=== PATIENT | female | born 1975 | race American Indian/Alaskan Native ===

== ENCOUNTER 2022-01-09 11:13 | Emergency (ER) | payer SELFPAY ==
[2022-01-09 11:46] VITALS: BP 223/120
[2022-01-09 14:55] LABS: Hematocrit 33.6 % (30.3-42.9); Hemoglobin 10.3 gm/dl (10.1-14.3); Mean Corpuscular HGB Conc 31 % (30-34); Platelet Count 294 K/mm3 (140-440); Red Blood Count 4.89 M/mm3 (3.65-5.03); Red Cell Distribution Width 18.2 % (13.2-15.2)
[2022-01-09 15:04] LABS: Mean Corpuscular Volume 69 fl (79-97)
[2022-01-09 15:10] LABS: Alanine Aminotransferase 12 units/L (7-56); Albumin 4.3 g/dL (3.9-5); BUN/Creatinine Ratio 10; Blood Urea Nitrogen 8 mg/dL (7-17); Calcium 9.3 mg/dL (8.4-10.2); Hemolysis Index 3
--- NOTE | 2022-01-09 16:16 | XRay Report ---
CHEST 2 VIEWS INDICATION / CLINICAL INFORMATION: Cough for 2 days, increasing last night. COMPARISON: None available. FINDINGS: SUPPORT DEVICES: None. HEART / MEDIASTINUM: The heart size and pulmonary vasculature are normal. LUNGS / PLEURA: No significant pulmonary or pleural abnormality. No pneumothorax. ADDITIONAL FINDINGS: No significant additional findings. IMPRESSION: No acute findings. Signer Name: Jacinto Pepper MD Signed: 01/09/2022 4:12 PM Workstation Name: [id number]
== END 2022-01-09 13:00 | disposition left against medical advice (07) ==
LOC: ED 11:13
DX: R06.02 Shortness of breath (principal); R50.9 Fever, unspecified; Z53.21 Procedure and treatment not carried out due to patient leaving prior to being seen by health care provider
CPT/HCPCS: 36415; 71046; 80053; 84484; 85027

== ENCOUNTER 2022-01-27 05:05 | Emergency (ER) | payer OTHER ==
[2022-01-27 05:14] VITALS: BP 196/108
[2022-01-27] MEDS ORDERED: ACETAMINOPHEN 500 MG TAB PO NR (11:04)
[2022-01-27] MEDS ORDERED: IBUPROFEN 600 MG TAB PO NR (11:04)
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
== END 2022-01-27 14:00 | disposition home or self-care (01) ==
LOC: ED 05:05
DX: S29.012A Strain of muscle and tendon of back wall of thorax, initial encounter (principal); M62.830 Muscle spasm of back; M54.50 Low back pain, unspecified; M62.838 Other muscle spasm; M54.2 Cervicalgia; I10 Essential (primary) hypertension; Z79.899 Other long term (current) drug therapy; V87.7XXA Person injured in collision between other specified motor vehicles (traffic), initial encounter; Y93.89 Activity, other specified; Y92.488 Other paved roadways as the place of occurrence of the external cause; Y99.8 Other external cause status
CPT/HCPCS: 72070; 72100; 72125; 99284